=== PATIENT | male | born 1965 | race African-American/Black ===

== ENCOUNTER → 2016-09-08 | Outpatient (CLI) | payer OTHER ==
[~2016-09-08] MED LIST: ASPI81TA82 PO; BENZ0.5T PO; BENZ1TAB PO; HALO5TAB PO; HYDR25TA5 PO; LISI-366 PO; LISI40TA PO; PANT40TA3 PO
[2016-09-08 12:09] LABS: HEMATOCRIT 39.5 % (39.0-51.0); MEAN CELL VOLUME 81.4 FL (80.0-100.0); MEAN CORPUSCULAR HEMOGLOBIN 26.8 PG (27.0-34.0); MEAN CORPUSCULAR HGB CONC 32.9 % (32.0-36.0); PLATELET COUNT 151 TH/MM3 (150-450); RED BLOOD COUNT 4.85 MIL/MM3 (4.50-5.90); RED CELL DISTRIBUTION WIDTH 13.6 % (11.6-17.2); REVIEW FLAG FINAL; WHITE BLOOD COUNT 4.5 TH/MM3 (4.0-11.0)
[2016-09-08 12:43] LABS: ALKALINE PHOSPHATASE 60 U/L (45-117); TOTAL BILIRUBIN ADULT 0.2 MG/DL (0.2-1.0)
[2016-09-08 12:44] LABS: ALT (GPT) 31 U/L (12-78); ANION GAP 10 MEQ/L (5-15); AST (GOT) 28 U/L (15-37); BICARBONATE 23.8 MEQ/L (21.0-32.0); BLOOD UREA NITROGEN 17 MG/DL (7-18); CHLORIDE 105 MEQ/L (98-107); GLOMERULAR FILTRATION RATE 77 ML/MIN (>89); GLUCOSE,FASTING 100 MG/DL (74-99); POTASSIUM 4.2 MEQ/L (3.5-5.1); SODIUM (NA) 139 MEQ/L (136-145)
== END ==
LOC: CLAB 11:47
PROVIDERS: ATTEND Nurse Practitioner Family
DX: R53.83 Other fatigue (principal)
CPT/HCPCS: 36415; 80053; 84443; 85027

== ENCOUNTER 2017-01-30 13:54 | Emergency (ER) | payer OTHER ==
[~2017-01-30] VITALS: Ht 170.2 cm; Wt 95.0 kg
[~2017-01-30 13:54] MED LIST changes: -ASPI81TA82 PO; -BENZ1TAB PO; -LISI-366 PO
[2017-01-30 13:57] VITALS: BP 172/98; PULSE 107; RESP 16; TEMP 99.8; O2SAT 97
[2017-01-30] MEDS ORDERED: PIPERACIL-TAZO 4.5 GM PREMIX 100 ML IV STA (14:43)
[2017-01-30] MEDS ORDERED: ASPI-516 CHEW (14:45)
--- NOTE | 2017-01-30 14:51 | PD ---
HPI Chief Complaint: Skin Problem Time Seen by Provider: 14:43 Travel History International Travel<30 days: No Contact w/Intl Traveler<30days: No Traveled to known affect area: No History of Present Illness HPI 51-year-old male patient presents to the ER today with 3 days history of right lower leg pains that started with what he thought was a bug bite. He states that he was working the lawn 3 days ago, and the area started to get more swollen and tender. He has been having subjective fevers and chills. He denies any chest pains, shortness of breath, or any other symptoms. Modifying Factors: None Associated Signs & Symptoms: Right leg pains, swelling, redness Risk Factors: None PFSH Past Medical History Hx Anticoagulant Therapy: Yes (ASA) Arthritis: Yes (BILAT KNEES) Asthma: Yes Autoimmune Disease: No Bipolar Disorder: Yes Anxiety: Yes Depression: Yes Heart Rhythm Problems: Yes Cancer: No Cardiac Catheterization: No Cardiovascular Problems: Yes (HTN) High Cholesterol: Yes Chest Pain: Yes Congestive Heart Failure: No Cirrhosis: Yes COPD: No Coronary Artery Disease: Yes Diabetes: Yes (diet controlled) Patient Takes Glucophage: No Diminished Hearing: No Gastrointestinal Disorders: No Genitourinary: Yes (ENLARGE PROSTATE) Hypertension: Yes Immune Disorder: No Implanted Vascular Access Dvce: No Kidney Stones: No Neurologic: No Psychiatric: Yes Reproductive: No Respiratory: Yes (ASTHMA, BRONCHITIS) Immunizations Current: No Myocardial Infarction: No Radiation Therapy: No Renal Failure: No Schizophrenia: Yes (REPORTS THAT HE IS SCHIZOPHRENIC) Sickle Cell Disease: No Thyroid Disease: No Ulcer: Yes Influenza Vaccination: No Past Surgical History Surgical History: No Previous Surgery Arteriovenous Shunt: No Coronary Artery Bypass Graft: No Insulin Pump: No Social History Alcohol Use: No Tobacco Use: No Substance Use: No (HX OF MARIJUANA) Allergies-Medications (Allergen,Severity, Reaction): Coded Allergies: shellfish derived (Unverified Allergy, Severe, Anaphylaxis, 01/30/17) Reported Meds & Prescriptions Reported Meds & Active Scripts Active Benztropine (Benztropine Mesylate) 0.5 Mg Tab 2 Mg PO HS Haloperidol 5 Mg Tab 5 Mg PO HS Lisinopril 40 Mg Tab 40 Mg PO DAILY Pantoprazole (Pantoprazole Sodium) 40 Mg Tab 40 Mg PO DAILY Hydrochlorothiazide 25 Mg Tab 25 Mg PO DAILY Reported Aspirin 81 Mg Chew 81 Mg CHEW DAILY Review of Systems Except as stated in HPI: all other systems reviewed are Neg Physical Exam Narrative GENERAL: Well-developed middle age -[place] male patient currently in no acute distress. Awake and oriented 3. SKIN: Focused skin assessment warm/dry. HEAD: Atraumatic. Normocephalic. EYES: Pupils equal and round. No scleral icterus. No injection or drainage. ENT: No nasal bleeding or discharge. Mucous membranes pink and moist. NECK: Trachea midline. No JVD. CARDIOVASCULAR: Regular rate and rhythm. No murmur appreciated. RESPIRATORY: No accessory muscle use. Clear to auscultation. Breath sounds equal bilaterally. GASTROINTESTINAL: Abdomen soft, non-tender, nondistended. Hepatic and splenic margins not palpable. MUSCULOSKELETAL: No obvious deformities. No clubbing. No cyanosis. No edema. EXTREMITIES: No clubbing, cyanosis, or edema. No joint tenderness, effusion, or edema noted. There is a palpable indurated area on the right lateral calf was is tender to palpation with no underlying fluctuance. NEUROLOGICAL: Awake and alert. No obvious cranial nerve deficits. Motor grossly within normal limits. Normal speech. PSYCHIATRIC: Appropriate mood and affect; insight and judgment normal. Data Data Last Documented VS Vital Signs Date Time Temp Pulse Resp B/P (MAP) Pulse Ox O2 Delivery O2 Flow Rate FiO2 01/30/17 15:18 89 17 138/92 (107) 96 Room Air 01/30/17 13:57 99.8 Orders Orders Sepsis Workup Initiated (01/30/17 ) Complete Blood Count With Diff (01/30/17 14:43) Comprehensive Metabolic Panel (01/30/17 14:43) Lactic Acid Sepsis Protocol (01/30/17 14:43) Blood Culture (01/30/17 14:43) Blood Glucose (01/30/17 14:43) Ecg Monitoring (01/30/17 14:43) Iv Access Insert/Monitor (01/30/17 14:43) Oximetry (01/30/17 14:43) Oxygen Administration (01/30/17 14:43) Piperacil-Tazo 4.5 Gm Premix (Zosyn 4.5 (01/30/17 14:43) Us Leg Venous Doppler (01/30/17 14:43) Labs Laboratory Tests Test 01/30/17 15:00 White Blood Count 10.2 TH/MM3 Red Blood Count 4.68 MIL/MM3 Hemoglobin 12.7 GM/DL Hematocrit 38.9 % Mean Corpuscular Volume 83.2 FL Mean Corpuscular Hemoglobin 27.1 PG Mean Corpuscular Hemoglobin Concent 32.6 % Red Cell Distribution Width 13.7 % Platelet Count 158 TH/MM3 Mean Platelet Volume 9.4 FL Neutrophils (%) (Auto) 78.9 % Lymphocytes (%) (Auto) 9.8 % Monocytes (%) (Auto) 10.6 % Eosinophils (%) (Auto) 0.4 % Basophils (%) (Auto) 0.3 % Neutrophils # (Auto) 8.1 TH/MM3 Lymphocytes # (Auto) 1.0 TH/MM3 Monocytes # (Auto) 1.1 TH/MM3 Eosinophils # (Auto) 0.0 TH/MM3 Basophils # (Auto) 0.0 TH/MM3 CBC Comment DIFF FINAL Differential Comment Blood Urea Nitrogen 16 MG/DL Creatinine 1.01 MG/DL Random Glucose 93 MG/DL Total Protein 8.1 GM/DL Albumin 3.6 GM/DL Calcium Level 9.2 MG/DL Alkaline Phosphatase 82 U/L Aspartate Amino Transf (AST/SGOT) 25 U/L Alanine Aminotransferase (ALT/SGPT) 32 U/L Total Bilirubin 0.4 MG/DL Sodium Level 138 MEQ/L Potassium Level 3.6 MEQ/L Chloride Level 104 MEQ/L Carbon Dioxide Level 28.5 MEQ/L Anion Gap 6 MEQ/L Estimat Glomerular Filtration Rate 94 ML/MIN Lactic Acid Level 1.2 mmol/L MDM Medical Decision Making Medical Screen Exam Complete: Yes Emergency Medical Condition: Yes Medical Record Reviewed: Yes Interpretation(s) Laboratory Tests Test 01/30/17 15:00 Hemoglobin 12.7 GM/DL (13.0-17.0) Hematocrit 38.9 % (39.0-51.0) Neutrophils (%) (Auto) 78.9 % (16.0-70.0) Monocytes (%) (Auto) 10.6 % (0.0-8.0) Neutrophils # (Auto) 8.1 TH/MM3 (1.8-7.7) Monocytes # (Auto) 1.1 TH/MM3 (0-0.9) Differential Diagnosis Right calf area pain, tenderness, induration: Cellulitis versus DVT versus abscess Narrative Course Lab work did not indicate significant sepsis. He has no underlying DVT. His suspect he has some underlying cellulitis and IV antibiotics had been given after cultures are been drawn. At this point, my plan would be to release the patient with further by mouth antibiotics and follow-up to primary care doctor. Return for worsening in pain, swelling, redness, and as needed. The plan was discussed with the patient and he states understanding. Diagnosis Primary Impression: Cellulitis of right leg Med/Other Pt SpecificInfo: Prescription(s) given Scripts Clindamycin (Clindamycin) 300 Mg Cap 300 MG PO TID for Infection, #21 CAP 0 Refills Prov: Gianna Perez MD 01/30/17 Disposition: 01 DISCHARGE HOME Condition: Stable Gianna Perez MD Jan 30, 2017 14:51
[2017-01-30 15:18] VITALS: BP 138/92; PULSE 89; RESP 17; O2SAT 96
[2017-01-30 15:30] LABS: AUTOMATED NEUTROPHIL # 8.1 TH/MM3 (1.8-7.7); BASOPHIL % 0.3 % (0.0-2.0); EOSINOPHIL % 0.4 % (0.0-4.0); HEMATOCRIT 38.9 % (39.0-51.0); HEMOGLOBIN 12.7 GM/DL (13.0-17.0); LYMPH % 9.8 % (9.0-44.0); MEAN CELL VOLUME 83.2 FL (80.0-100.0); MEAN CORPUSCULAR HEMOGLOBIN 27.1 PG (27.0-34.0); MEAN CORPUSCULAR HGB CONC 32.6 % (32.0-36.0); MEAN PLATELET VOLUME 9.4 FL (7.0-11.0); MONO % 10.6 % (0.0-8.0); MONOCYTE # 1.1 TH/MM3 (0-0.9); NEUT % 78.9 % (16.0-70.0); PLATELET COUNT 158 TH/MM3 (150-450); RED BLOOD COUNT 4.68 MIL/MM3 (4.50-5.90); RED CELL DISTRIBUTION WIDTH 13.7 % (11.6-17.2); WHITE BLOOD COUNT 10.2 TH/MM3 (4.0-11.0)
[2017-01-30 15:51] LABS: ALBUMIN 3.6 GM/DL (3.4-5.0); ALT (GPT) 32 U/L (12-78); AST (GOT) 25 U/L (15-37); BICARBONATE 28.5 MEQ/L (21.0-32.0); BLOOD UREA NITROGEN 16 MG/DL (7-18); CALCIUM 9.2 MG/DL (8.5-10.1); CHLORIDE 104 MEQ/L (98-107); CREATININE 1.01 MG/DL (0.60-1.30); GLOMERULAR FILTRATION RATE 94 ML/MIN (>89); GLUCOSE,RANDOM 93 MG/DL (74-106); SODIUM (NA) 138 MEQ/L (136-145)
[2017-01-30 15:53] LABS: ALKALINE PHOSPHATASE 82 U/L (45-117); TOTAL BILIRUBIN ADULT 0.4 MG/DL (0.2-1.0); TOTAL PROTEIN 8.1 GM/DL (6.4-8.2)
--- NOTE | 2017-01-30 16:19 | RADRPT ---
EXAM DATE/TIME: 01/30/2017 15:46 [facility] COMPARISON: No previous studies available for comparison. INDICATIONS : Right leg swelling. MEDICAL HISTORY : Gastroesophageal reflux disease. Coronary artery disease. Hypertension. Hypercholesterolemia. Asthma. Arthiritis. Diabetes. Schizophrenia. Depression. Cirrhosis. Blood transfusion. SURGICAL HISTORY : Surgery, unspecified. ENCOUNTER: Initial ACUITY: 3 days PAIN SCORE: 6/10 LOCATION: Right leg. TECHNIQUE: Venous ultrasound of the leg was performed from the inguinal ligament to the proximal calf. Real-chad e, color Doppler and spectral tracing, compression and augmentation techniques were used. FINDINGS: There is normal compressibility of the deep venous system from the inguinal region to the proximal ca lf. No echogenic clot is seen in the lumen of the common femoral, femoral, popliteal, and posterior tibial veins. There is a normal response of the venous system to proximal and distal augmentation an d respiration. Multiple enlarged lymph nodes measuring up to 2.1 x 1.5 x 0.7 cm. CONCLUSION: 1. No sonographic evidence for right lower extremity DVT. 2. Nonspecific right inguinal adenopathy, although generally reactive in etiology. Bashir Luna MD on January 30, 2017 at 16:14 Board Certified Radiologist. This report was verified electronically.
[2017-01-30] MEDS ORDERED: CLIN300C5 PO (16:25)
== END 2017-01-30 17:01 | disposition home or self-care (01) ==
LOC: NEPC 13:54
DX: L03.115 Cellulitis of right lower limb (principal); J45.909 Unspecified asthma, uncomplicated; F31.9 Bipolar disorder, unspecified; I10 Essential (primary) hypertension; E11.9 Type 2 diabetes mellitus without complications; I25.10 Atherosclerotic heart disease of native coronary artery without angina pectoris; K74.60 Unspecified cirrhosis of liver; F41.9 Anxiety disorder, unspecified; E78.00 Pure hypercholesterolemia, unspecified
CPT/HCPCS: 80053; 83605; 85025; 87040; 93971; 96374; 99285; J2543